=== PATIENT | female | born 1970 | race Caucasian/White ===

== ENCOUNTER → 2017-03-19 | Outpatient (CLI) | payer BC ==
--- NOTE | 2017-03-20 07:28 | XR ---
EXAMINATION TYPE: XR chest 2V DATE OF EXAM: 03/19/2017 COMPARISON: NONE INDICATION: COPD cough TECHNIQUE: Frontal and lateral views of the chest are obtained. FINDINGS: The heart size is normal. The pulmonary vasculature is normal. The lungs are clear. IMPRESSION: 1. No acute pulmonary process.
== END | disposition home or self-care (01) ==
LOC: RADXRYALE 11:07
PROVIDERS: ATTEND Physician Assistant Medical
DX: J44.9 Chronic obstructive pulmonary disease, unspecified (principal)
CPT/HCPCS: 71020

== ENCOUNTER → 2019-04-19 | Outpatient (CLI) | payer OTHER ==
--- NOTE | 2019-04-19 14:49 | XR ---
EXAMINATION TYPE: XR chest 2V DATE OF EXAM: 04/19/2019 COMPARISON: Chest x-ray August 07, 2017. HISTORY: History of COPD and tobacco use. TECHNIQUE: Frontal and lateral views of the chest are obtained. FINDINGS: Underlying emphysematous changes are felt present on lateral view. There is no focal air sp alfred opacity, pleural effusion, or pneumothorax seen. The cardiac silhouette size is within normal li mits. The osseous structures are intact. IMPRESSION: Chronic emphysematous change without acute pulmonary process.
== END | disposition home or self-care (01) ==
LOC: RADXRYALE 14:32
PROVIDERS: ATTEND Physician Assistant Medical
DX: J43.9 Emphysema, unspecified (principal)
CPT/HCPCS: 71046

== ENCOUNTER → 2019-05-23 | Outpatient (CLI) | payer OTHER ==
--- NOTE | 2019-05-23 14:54 | CT ---
EXAMINATION TYPE: CT chest w con DATE OF EXAM: 05/23/2019 COMPARISON: Chest x-ray 04/19/2019 HISTORY: Abnormal findings on dx imaging. CT DLP: 140.70 mGycm, Automated exposure control for dose reduction was used. CONTRAST: Performed injected with 100ml mL of Isovue 300. TECHNIQUE: Axial images were obtained at 5 mm thick sections. Reconstructed images are reviewed on [employer] computer in the coronal plane. FINDINGS: Portion of the thyroid visualized is normal. No suspicious lung nodules or focal infiltrates are present. No enlarged mediastinal or hilar adenopathy is evident. The ascending aorta diameter at the level o f the main pulmonary artery is 2.9 cm. The main pulmonary artery diameter at the bifurcation is 2.5 cm. Coronary artery calcifications noted. Limited CT sections are obtained through the upper abdomen. Abdomen is essentially unremarkable. IMPRESSIONS: 1. No acute pulmonary process.
== END | disposition home or self-care (01) ==
LOC: RADCTMAIN 09:00
PROVIDERS: ATTEND Family Medicine
DX: R93.89 Abnormal findings on diagnostic imaging of other specified body structures (principal); R63.4 Abnormal weight loss; F17.210 Nicotine dependence, cigarettes, uncomplicated
CPT/HCPCS: 71260; Q9967

== ENCOUNTER → 2019-11-03 | Outpatient (CLI) | payer OTHER ==
--- NOTE | 2019-11-03 15:18 | XR ---
EXAMINATION TYPE: XR hand complete RT DATE OF EXAM: 11/03/2019 CLINICAL HISTORY: Right hand pain and swelling after strain injury 2 weeks ago TECHNIQUE: Frontal, lateral and oblique images of the right hand are obtained. COMPARISON: None. FINDINGS: There is no acute fracture/dislocation evident in the right hand. The joint spaces in the right hand appear within normal limits. The overlying soft tissue appears unremarkable. IMPRESSION: There is no acute fracture or dislocation in the right hand.
== END | disposition home or self-care (01) ==
LOC: RADXRYALE 15:04
PROVIDERS: ATTEND Physician Assistant
DX: M79.641 Pain in right hand (principal)

== ENCOUNTER → 2020-07-05 | Outpatient (CLI) | payer OTHER ==
--- NOTE | 2020-07-05 12:36 | XR ---
Cervical spine HISTORY: Neck pain 5 views of cervical spine Cervical vertebral bodies show preserved height, near anatomic alignment, and bone mineralization. Th ere is multilevel spondylosis. Minimal anterolisthesis grade 1 C5-6, retrolisthesis grade 1 C3-4. The re are facet arthropathy changes. Mild loss of disc height C4-5. Prevertebral soft tissues are normal . No significant foraminal encroachment. Oblique views are suboptimal for evaluation of the neural fo ramina on the left however. impression: Degenerative disc disease and facet arthropathy.
== END | disposition home or self-care (01) ==
LOC: RADXRYALE 10:41
PROVIDERS: ATTEND Physician Assistant
DX: M47.812 Spondylosis without myelopathy or radiculopathy, cervical region (principal); M50.30 Other cervical disc degeneration, unspecified cervical region
CPT/HCPCS: 72050

== ENCOUNTER → 2020-09-13 | Outpatient (CLI) | payer OTHER ==
--- NOTE | 2020-09-14 06:45 | MR ---
MRI CERVICAL SPINE: CLINICAL HISTORY: Neck pain into bilateral upper extremities. TECHNIQUE: Multiplanar, multisequence imaging of the cervical spine is performed without IV contrast. COMPARISON: Cervical spine x-ray July 05, 2020. FINDINGS: Exam slightly suboptimal as is degraded by patient motion. Sagittal images of the cervical spine show the craniocervical junction to appear within normal limits. The cervical and upper thorac ic spinal cord is normal in course, caliber, and signal. Vertebral alignment is stable and satisfact ory. The vertebral body and intravertebral disk heights remain normal. The bone marrow signal inten sity is within normal limits. Axial images show the C2-C3 and C3-C4 levels to appear within normal limits. Axial images at C4-C5 level show tiny central disc protrusion minimally effacing the anterior thecal sac, patent bilateral neural foramina. Axial images at C5-C6 level show more prominent focal left paracentral disc protrusion effacing the a nterior thecal sac on axial image 21, patent bilateral neural foramina. Axial images at C6-C7 level shows broad-based right paracentral disc protrusion effacing the anterola teral thecal sac corresponding to sagittal image 8, patent bilateral neural foramina. Axial images at C7-T1 level appear within normal limits. IMPRESSION: Multilevel mild degenerative changes, largest disc herniations are noted at C5-C6 and C6- C7 levels.
== END | disposition home or self-care (01) ==
LOC: RADMRIMAIN 14:27
PROVIDERS: ATTEND Physician Assistant
DX: M50.122 Cervical disc disorder at C5-C6 level with radiculopathy (principal); M47.22 Other spondylosis with radiculopathy, cervical region
CPT/HCPCS: 72141

== ENCOUNTER → 2021-04-15 | Outpatient (CLI) | payer OTHER ==
--- NOTE | 2021-04-16 04:39 | MR ---
EXAMINATION TYPE: MR shoulder RT wo con DATE OF EXAM: 04/15/2021 COMPARISON: None HISTORY: Right shoulder pain for 3 months due to falling backwards off ladder. Multiplanar multiecho imaging of the right shoulder without contrast. FINDINGS: There is large shoulder joint effusion. There is 2 cm area of patchy increased signal in the greater tuberosity of the humerus consistent with large bone bruise. There is large rotator cuff tear with re traction of the supraspinatus tendon. There is severe narrowing of the subacromial joint space. Biceps tendon is intact. Subscapularis tendon is intact. The glenoid claudia appear intact. The scapula is intact. There is moderate hypertrophic spurring at the AC joint and mild subacromial i mpingement. IMPRESSION: Large rotator cuff tear with retraction of portions of the supraspinatus tendon. Subacromial joint sp alfred narrowing and impingement. Very large shoulder joint effusion. Large bone bruise at the greater t uberosity of the humerus.
== END | disposition home or self-care (01) ==
LOC: RADMRIMAIN 20:47
PROVIDERS: ATTEND Nurse Practitioner Family
DX: M75.101 Unspecified rotator cuff tear or rupture of right shoulder, not specified as traumatic (principal); M19.011 Primary osteoarthritis, right shoulder

== ENCOUNTER → 2021-09-05 | Outpatient (CLI) | payer OTHER ==
--- NOTE | 2021-09-05 08:11 | MR ---
MRI CERVICAL SPINE: CLINICAL HISTORY: Neck pain causing bilateral upper extremity pain and weakness for one year. TECHNIQUE: Multiplanar, multisequence imaging of the cervical spine is performed without IV contrast. COMPARISON: MRI cervical spine September 13, 2020. FINDINGS: Sagittal images of the cervical spine show the craniocervical junction to remain within nor mal limits. The cervical and upper thoracic spinal cord remains normal in caliber and signal. Verte bral alignment is stable and straightened. The vertebral body and intravertebral disk heights remain normal. The bone marrow signal intensity is within normal limits. Axial images show the C2-C3 and C3-C4 levels to remain within normal limits. Axial images at C4-C5 level show stable tiny central disc protrusion minimally effacing the anterior thecal sac, patent bilateral neural foramina. No significant change from prior. Axial images at C5-C6 level redemonstrate more prominent broad-based left paracentral disc protrusion effacing the anterior thecal sac on axial image 22, patent bilateral neural foramina. No significant change from prior. Axial images at C6-C7 level now show broad-based posterior disc protrusion effacing the anterior thec al sac with asymmetric mild left-sided neural foraminal narrowing more prominent from prior. Axial images at C7-T1 level remain within normal limits. IMPRESSION: Multilevel degenerative changes, largest disc herniations are redemonstrated at C5-C6 and C6-C7 levels. Some interval degenerative progression at C6-C7 level noted from prior MRI.
[2021-09-05 09:04] VITALS: BP 108/71; PULSE 63; RESP 17; TEMP 98.1
--- NOTE | 2021-09-05 09:11 | P.PAINCN ---
History of Present Illness - Reason for Consult Consult date: 09/05/21 Neck pain, and lumbar back pain - Chief Complaint Neck pain, and lumbar back pain - History of Present Illness Mrs. Robert Mistry is a 50 -year-old pleasant female came to the [facility] pain clinic for insula evaluation for her ongoing neck pain, and lumbar back pain . Patient has ongoing pain for 7 years. Patient denied any history of fall/injury/motor vehicle accident. Patient had history of long driving for many years from home to work. Patient is attributing long drive causing her neck issues sometimes. Patient describes pain is aching, throbbing, constant type of pain. Pain is radiating to right shoulder area sometimes, patient also had a history of right shoulder rotator cuff tear. Patient also complaining lower lumbar back pain which is aching, throbbing. Patient admitted that her pain is radiating up to mid thigh area sometimes. Patient rated pain levels are 7 out of 10 in severity. With the help of medications pain levels are 5-6 out of 10 in severity. Activities making pain worse. Medications, resting helping in relieving patient's pain. Patient pain some days better than others. Overall activities decreased secondary to pain. Because of the pain sometimes patient is feeling lack of sleep, interest, and energy. Denied any side effects with the medications. Denied any bowel or bladder problems at this time. Patient is not using any for walking support. Patient denies any suicidal or homicidal ideations intent or plan. Patient denies any auditory or visual hallucinations. Patient denied any red flag symptoms related to pain. She never tried any physical therapy, chiropractor therapy, massage therapy, TENS unit's Review of Systems All systems: negative Constitutional: Denies chills, Denies fever Eyes: denies blurred vision, denies pain Ears, nose, mouth and throat: Denies headache, Denies sore throat Cardiovascular: Denies chest pain, Denies shortness of breath Respiratory: Denies cough Gastrointestinal: Denies abdominal pain, Denies diarrhea, Denies nausea, Denies vomiting Genitourinary: Denies dysuria, Denies hematuria Musculoskeletal: Reports hot joints, Reports low back pain, Reports morning stiffness, Reports muscle cramps, Reports myalgias, Reports neck pain, Reports neck stiffness Integumentary: Denies pruritus, Denies rash Neurological: Denies numbness, Denies weakness Psychiatric: Denies anxiety, Denies depression Endocrine: Denies fatigue, Denies weight change Past Medical History Past Medical History: Asthma, GERD/Reflux, Hyperlipidemia Additional Past Medical History / Comment(s): lower back pain, sciatic pain rt, carpal tunnel rt History of Any Multi-Drug Resistant Organisms: None Reported Past Surgical History: Section, Tubal Ligation Past Anesthesia/Blood Transfusion Reactions: No Reported Reaction Past Psychological History: Depression, Depression Smoking Status: Current every day smoker Past Alcohol Use History: Occasional Additional Past Alcohol Use History / Comment(s): smoker 30 years 1/2 ppd, Past Drug Use History: Marijuana Additional Drug Use History / Comment(s): states socially on weekends - Past Family History Mother Family Medical History: No Reported History Medications and Allergies Home Medications Medication Instructions Recorded Confirmed Type Albuterol Inhaler (Mhu) [Ventolin 2 puff INHALATION DAILY PRN 10/09/15 09/05/21 History Hfa Inhaler] Beclomethasone Dipropionate [Qvar 1 puff INHALATION DAILY PRN 10/09/15 09/05/21 History 80 mcg/puff] Gabapentin [Neurontin] 300 mg PO HS PRN 10/09/15 09/05/21 History Omeprazole [PriLOSEC] 40 mg PO AC-BRKFST PRN 10/09/15 09/05/21 History Ranitidine HCl 150 mg PO BID PRN 10/09/15 09/05/21 History ARIPiprazole [Abilify] 5 mg PO DAILY 09/02/21 09/05/21 History Citalopram Hydrobromide [CeleXA] 40 mg PO DAILY 09/02/21 09/05/21 History Cyanocobalamin (Vitamin B-12) 1,000 mcg PO DAILY 09/02/21 09/05/21 History [Vitamin B-12] HYDROcodone/APAP 7.5-325MG [[place] 1 tab PO Q6H PRN 09/02/21 09/05/21 History 7.5-325] Loratadine 10 mg PO DAILY 09/02/21 09/05/21 History Multivitamins, Thera [Multivitamin 1 tab PO DAILY 09/02/21 09/05/21 History (formulary)] Tiotropium 18 Mcg/Puff [Spiriva] 1 puff INHALATION DAILY 09/02/21 09/05/21 History busPIRone HCL 30 mg PO BID 09/02/21 09/05/21 History traZODone HCL 100 mg PO HS 09/02/21 09/05/21 History Allergies Allergy/AdvReac Type Severity Reaction Status Date / Time No Known Allergies Allergy Verified 09/05/21 08:38 Physical Exam General: Well-developed, well-nourished, no acute distress HEENT: Normocephalic, and atraumatic Neck: Supple, no neck swelling Psychiatric: Appropriate mood, and affect [employer] MA[employer]GER: No focal neurological deficits Musculoskeletal: Upper extremity: Normal strength, and range of motion. Sensation grossly intact Lower extremity: Normal strength, and range of motion, sensation grossly intact Lumbar spine: Paravertebral tenderness: positive Lumbar facet load test : positive Sacroiliac joint tenderness: Positive on left side Thigh thrust test: Positive on left side SI joint compression test: Positive on left side Fabere test: Positive on left side Cervical spine: Paravertebral tenderness: Positive Cervical spine facet amanda: Positive Cervical spine Spurling test: Negative Multiple trigger points positive over cervical paraspinal, trapezius area, and lower lumbar area Results Comments: MRI of the cervical spine done on 09/05/2021 showed Multilevel degenerative changes, large discrimination are very demonstrated at C5-C6, and C6-C7 levels. Some interval degenerative progression at C6-C7 level noted from previous MRI. C4-C5 level show stable tiny central disc protrusion minimally effacing the anterior thecal sac, patent bilateral neural foramina. No significant changes from previous MRI Lumbar spine MRI done on 09/20/2015 showed Degenerative disc disease at L5-S1 with moderate circumferential disc bulge. Grade 1 anterolisthesis L5 on S1 Assessment and Plan Assessment: #1 cervical spondylosis without myelopathy #2 cervical disc herniation at C5-C6, and C6-C7 levels #3 myofascial pain syndrome #4 lumbar spondylosis without myelopathy #5 degenerative disc disease at L5-S1 with moderate circumferential disc bulge #6 sacroiliac joint dysfunction left-sided #7 tobacco dependence smoking cigarettes Plan: #1 Diagnoses, prognosis, and multiple treatment options including but not limited to physical therapy, interventional therapy, adjunct medication therapy, narcotic medication, and surgical options were discussed with the patient. And all questions were answered to the patient's satisfaction. #2 treatment plan agreement : Patient was thoroughly discussed regarding the treatment options, alternatives, and importance of exercises as tolerated. Patient clearly understood. #3 Patient was counseled on importance of regular exercise. Including nahomy chi, aerobic exercises as tolerated. Which helps for chronic pain, and overall well- being. Patient also counseled regarding importance of weight control rolling chronic pain, and overall other health issues. By altering diet habits, minimizing sugar intake, and processed foods helps in minimizing Inflammation. Also discussed with the patient regarding intermittent fasting. Patient counseled regarding smoking associated with chronic pain, worsening inflammation, and smoking effects on liver, and medication metabolism. And encouraged to stop smoking. #4 investigations: MAPS- reviewed , urine drug test- not done #5 diagnostic tests: None #6 consultation : Physical therapy 2 times per week 6 weeks # 7 interventional procedures: Discussed with the patient regarding cervical trigger points, and lumbar L5-S1 epidural steroid injection . Procedure, complications, alternatives discussed with the patient. #8 medications #1 magnesium oxide 400 mg by mouth daily Medication side effects, complications, long-term consequences discussed with the patient. Patient recommended to contact the pain clinic if noticed any issues with given medications. #9 morphine milligrams equivalents dose ( MME) per day: 0 from the pain clinic. # 10 TENS unit's, and percussion massage device #11 disposition: scheduled to follow up with pain clinic in 8 weeks duration. Time with Patient: Greater than 30 PQRS Measure Charge Sheet Measure #130: Documentation of Current Meds in Medical Chart: Patient's medications documented in chart Measure #226: Tobacco Use: Screen & Cessation Intervention: Pt screened for tobacco use AND intervention given Measure #111: Pneumonia Vaccination: Pneumococcal vaccine NOT administered or previously given Measure #47: Advance Care Plan: Advance care planning discussed & documented, pt chose/unable to give Measure #412: Opioid Treatment Agreement: No documentation of signed opioid treatment agreement Measure #408: Opioid Therapy Follow-up Evaluation: Patient had NO f/u eval minimum every 3 months during opioid therapy Measure #317: Preventitive Care & Scrn High Bld Press & F/U: Pre-hypertensive or hypertensive BP documented, pt will f/u with PCP Measure #128: Body Mass Index (BMI) Screening & Follow-up: BMI documented within normal parameters Measure #131: Pain Assessment & Follow-up: Pain positive & plan documented Measure #431: Unhealthy Alcohol Use Preventative Care & Scrn: Patient not identified as an unhealthy alcohol user PQRS Narrative: Smoking Status Current every day smoker Pain Intensity [Lower Back] 8 Scale Used Numeric (1 - 10) Home Medications: Ambulatory Orders Albuterol Inhaler (Mhu) [Ventolin Hfa Inhaler] 2 puff INHALATION DAILY PRN 10/09/15 Beclomethasone Dipropionate [Qvar 80 mcg/puff] 1 puff INHALATION DAILY PRN 10/09/15 Gabapentin [Neurontin] 300 mg PO HS PRN 10/09/15 Omeprazole [PriLOSEC] 40 mg PO AC-BRKFST PRN 10/09/15 Ranitidine HCl 150 mg PO BID PRN 10/09/15 ARIPiprazole [Abilify] 5 mg PO DAILY 09/02/21 Citalopram Hydrobromide [CeleXA] 40 mg PO DAILY 09/02/21 Cyanocobalamin (Vitamin B-12) [Vitamin B-12] 1,000 mcg PO DAILY 09/02/21 HYDROcodone/APAP 7.5-325MG [[place] 7.5-325] 1 tab PO Q6H PRN 09/02/21 Loratadine 10 mg PO DAILY 09/02/21 Multivitamins, Thera [Multivitamin (formulary)] 1 tab PO DAILY 09/02/21 Tiotropium 18 Mcg/Puff [Spiriva] 1 puff INHALATION DAILY 09/02/21 busPIRone HCL 30 mg PO BID 09/02/21 traZODone HCL 100 mg PO HS 09/02/21
== END ==
LOC: RADMRIMAIN 07:20
DX: M47.812 Spondylosis without myelopathy or radiculopathy, cervical region (principal); M50.20 Other cervical disc displacement, unspecified cervical region; M79.18 Myalgia, other site; M47.816 Spondylosis without myelopathy or radiculopathy, lumbar region; M51.37 Other intervertebral disc degeneration, lumbosacral region; M53.3 Sacrococcygeal disorders, not elsewhere classified; F17.210 Nicotine dependence, cigarettes, uncomplicated; J45.909 Unspecified asthma, uncomplicated; K21.9 Gastro-esophageal reflux disease without esophagitis; E78.5 Hyperlipidemia, unspecified; F32.A Depression, unspecified; Z79.899 Other long term (current) drug therapy
CPT/HCPCS: 72141; 99211